=== PATIENT | female | born 2000 | race Caucasian/White ===

== ENCOUNTER 2024-03-17 16:23 | Inpatient (IN) | payer OTHER, SELFPAY ==
[2024-03-17] VITALS (11 sets, daily range): BP systolic 135–175; BP diastolic 81–97; PULSE 66–92; RESP 16; TEMP 36.3–36.7; O2SAT 97–98; BMI 37.4
[2024-03-17] MEDS: 0.9% Normal Saline Single 100 ML IV.SOLN. INTRA-UTER (17:30)
[2024-03-17 17:56] LABS: Protein, Urine (Random) 18.7 mg/dL (<11.9); Protein:Creat Ratio 198 mg/g CRE (0-200)
[2024-03-17 18:08] LABS: Absolute Lymphocyte Count 2.18 X10^3/uL (0.83-4.51); Absolute Neutrophil Count 11.6 X10^3/uL (2.0-7.7); Basophil# 0.04 X10^3/uL; Basophil% 0.3 % (0-1); Eosinophil# 0.11 X10^3/uL; Eosinophils% 0.7 % (0-5); Hematocrit 37.8 % (37-47); Hemoglobin 13.1 g/dL (12.0-15.0); Lymphocyte # 2.18 X10^3/ul (0.83-4.51); Lymphocyte % 14.6 % (19-41); Mean Corp Hgb Conc 34.7 g/dL (32-36); Mean Corpuscular Volume 92.2 fL (81-99); Mean Platelet Vol. 12.9 fl (6.2-12.0); Monocyte# 0.89 X10^3/uL; NRBC Flagged by Analyzer 0 % (0-5); Neutrophil # 11.61 X10^3/uL (2.7-7.7); Neutrophil % 77.7 % (47-70); Platelet Count 252 K/mm3 (150-450); RBC Distribution Width CV 13.1 % (11.6-14.6); RBC Distribution Width SD 43.6 fl (35.1-43.9); White Blood Count 14.9 K/mm3 (4.4-11.0)
[2024-03-17 19:33] LABS: AST(SGOT) 13 U/L (15-37); Alanine Aminotransfer ALT/SGPT 19 U/L (13-56); Creatinine, Serum 0.73 mg/dL (0.55-1.02); EST Glomerular Filtration Rate 104 mL/min (>60); Est Glom Filt Rate - Afr Amer 126 mL/min (>60); Estimated Creatinine Clearance 139.48 ml/min; Uric Acid 5.8 mg/dL (2.6-6.0)
[2024-03-17 19:55] LABS: Syphilis Antibodies Non-reactive
[2024-03-18] VITALS (66 sets, daily range): BP systolic 122–163; BP diastolic 59–97; PULSE 62–143; RESP 16–18; TEMP 36.4–37.1; O2SAT 92–100
[2024-03-18] MEDS: Lactated Ringers 1,000 ML 999 ML IV ×2 (00:25→03:08)
[2024-03-18] MEDS: Amnioinfusion- 0.9% NS 1,000 ML IV.SOLN. 1000 ML INTRA-UTER (00:45)
[2024-03-18] MEDS: Terbutaline 1 MG/ML Vial 0.25 MG SC (04:00)
[2024-03-18] MEDS: fentaNYL-bupivacaine (epidural) 100 ML BAG EPIDURAL ×2 (04:30→08:54)
[2024-03-18] MEDS: Lactated Ringers 1,000 ML 50 ML IV (04:52)
[2024-03-18] MEDS: 0.9% Saline Lock 10 ML Syringe IV (05:24)
[2024-03-18] MEDS: Ondansetron 4 MG/2 ML Vial IV (05:24)
[2024-03-18] MEDS: Oxytocin 10 UNITS/ML Vial IM (10:14)
[2024-03-18] MEDS: Oxytocin 15 Units/NS 250ml 15 UNITS/250 ML IV.SOLN 83 UNITS IV (10:15)
[2024-03-18] MEDS: Acetaminophen 500 MG Tablet 1000 MG PO (21:30)
[2024-03-19 04:01] VITALS: BP 137/90; PULSE 80; RESP 18; TEMP 36.5; O2SAT 98
[2024-03-19 08:12] VITALS: BP 132/85; PULSE 76; RESP 16; TEMP 36.4; O2SAT 98
[2024-03-19 13:30] VITALS: BP 152/79; PULSE 83; RESP 16; TEMP 36.7; O2SAT 99
[2024-03-19] MEDS: Senna/Docusate Sodium 1 Tablet PO (13:31)
[2024-03-19 13:49] LABS: Hematocrit 33.3 % (37-47); Hemoglobin 11.5 g/dL (12.0-15.0); Mean Corp Hgb Conc 34.5 g/dL (32-36); Mean Corpuscular Hgb 32.1 pg (27.0-32.0); Mean Platelet Vol. 12.2 fl (6.2-12.0); Platelet Count 198 K/mm3 (150-450); RBC Distribution Width CV 13.5 % (11.6-14.6); Red Blood Count 3.58 M/mm3 (4.2-5.4); White Blood Count 14.9 K/mm3 (4.4-11.0)
[2024-03-19 20:26] VITALS: BP 149/87; PULSE 78; RESP 18; TEMP 36.6; O2SAT 98
[2024-03-19 22:05] VITALS: BP 137/90; PULSE 92; RESP 16; O2SAT 97
[2024-03-19] MEDS: NIFEdipine 30 MG Tablet PO (22:05)
[2024-03-20 02:00] VITALS: BP 130/74; PULSE 85; RESP 16; TEMP 36.7; O2SAT 98
[2024-03-20 08:45] VITALS: BP 128/82; PULSE 79; RESP 17; TEMP 36.3; O2SAT 98
[2024-03-20] MEDS: NIFEdipine 30 MG Tablet PO (09:56)
== END 2024-03-20 12:45 | disposition home or self-care (01) | DRG 807 ==
PROVIDERS: Obstetrics & Gynecology; Admitting Provider Obstetrics & Gynecology; Referring Provider Obstetrics & Gynecology; Visit Provider Obstetrics & Gynecology
DX: O13.4 Gestational [pregnancy-induced] hypertension without significant proteinuria, complicating childbirth (principal); Z37.0 Single live birth; O69.81X0 Labor and delivery complicated by cord around neck, without compression, not applicable or unspecified; O76 Abnormality in fetal heart rate and rhythm complicating labor and delivery; Z3A.37 37 weeks gestation of pregnancy; Z79.82 Long term (current) use of aspirin; O77.0 Labor and delivery complicated by meconium in amniotic fluid; O70.1 Second degree perineal laceration during delivery
CPT/HCPCS: 59025; 59050; 82565; 82570; 84156; 84450; 84460; 84550; 85025; 85027; 86780; 86850; 86900; 86901; 87653; 99221; J7030; J7040; J7120; A4216; G0378; J2405